=== PATIENT | male | born 2000 | race Caucasian/White ===

== ENCOUNTER 2025-02-02 09:40 | Emergency (ER) | payer OTHER ==
[~2025-02-02] VITALS: Ht 175.3 cm; Wt 72.6 kg
[2025-02-02 09:43] VITALS: BP 138/79; TEMP 98
[2025-02-02 10:28] VITALS: O2SAT 97
== END 2025-02-02 10:29 ==
LOC: ER 09:43
DX: Z04.1 Encounter for examination and observation following transport accident (principal); Z60.2 Problems related to living alone; Z65.3 Problems related to other legal circumstances; V47.5XXA Car driver injured in collision with fixed or stationary object in traffic accident, initial encounter; Y93.89 Activity, other specified; Y92.488 Other paved roadways as the place of occurrence of the external cause; Y99.8 Other external cause status